=== PATIENT | female | born 1985 | race Two or more races ===

== ENCOUNTER 2016-08-19 07:26 | Emergency (ER) | payer OTHER ==
[~2016-08-19] VITALS: Ht 175.3 cm; Wt 70.0 kg
[~2016-08-19 07:26] MED LIST: FOL1 PO; LAMO150T3 PO; [UNRECOGNIZED DRUG - OTHER]
--- NOTE | 2016-08-19 07:31 | ED.REPORT ---
HPI-NVD Date of Service August 19, 2016 ED Provider: Marcela Hayes MD Patient is a 31 year old female with a history of vestibular migraines and vertigo who presents to the ED complaining of a severe headache onset a week ago. Associated symptoms include pain radiating into her neck, vomiting and chills. She denies lower back pain or decreased appetite. The patient states that the pain is exacerbated by movement and that it feels different than her other migraines. She reports that she has been to the ED due to migraines three times over the past month. Nursing Notes Stated Complaint: HEADACHES, VOMITING Nursing Notes Reviewed: Yes Allergies: Coded Allergies: morphine (Verified Allergy, Severe, 07/31/16) latex (Verified Allergy, Intermediate, 07/31/16) Scheduled ([ plus amn]) 1 x daily Folic Acid-Expunged Drug, Do Not Renew! (Folic Acid-Expunged Drug, Do Not Renew! ) 1 Mg Tablet 1 MG PO take 2 twice daily lamoTRIgine-Expunged Drug, Do Not Renew! (lamoTRIgine-Expunged Drug, Do Not Renew!) 150 Mg Tablet 150 MG PO 2 tabs twice a day General Time Seen by MD: 07:31 Chief Complaint Other (headache) Hx Obtained From: Sign Painter Helper Arrived By: Walk-in Onset Occurred: 1 week ago Symptom Duration: Since onset Recent Healthcare: No recent hospitalization, Recent doctor visit Similar Sx Previous: Yes Past Medical History Past Medical History vestibular migraines vertigo Meningitis at 18 months of age, on medication for life Deaf P2, G1 Reports morphine allergy. Past Surgical History Cervical surgery Reports: Appendectomy Smoking History Never Smoker Social History Alcohol Use: Denies alcohol use Drug Use: Denies drug use Other Social History: Local resident Ambulatory Status Independent Review of Systems Constitutional: Reports: Chills GI: Reports: Vomiting Neurologic: Reports: Headache Complete sys rev & neg: except as marked. Respiratory: Denies: Non-productive cough, Shortness of breath Musculoskeletal: Reports: Neck pain, Denies: Back pain Physical Exam Initial Vital Signs Vital Signs (First) Date Time Temp Pulse Resp B/P Pulse Ox O2 Delivery O2 Flow Rate FiO2 08/19/16 07:54 36.4 99 18 119/71 99 Room Air Initial VS: Reviewed General/Constitutional: Awake, Alert patient was sitting up in the bed, using sign language and moving with headache Abdomen: Atraumatic, Soft, Non-tender Respiratory / Chest: Atraumatic, Breath sounds NL, Breath sounds = bilat, No respiratory distress Cardiovascular: Heart rate NL, Regular rhythm, Heart sounds NL Back: Atraumatic, Full range of motion Skin: Atraumatic, Color NL, No rash, Warm, Dry Neurologic: Oriented X3, Speech NL, No motor deficits, No sensory deficits Neck: Atraumatic, Supple, No meningismus Psychiatric: Affect NL, Mood NL Interpretation & Diagnostics Lab Results Interpretation Result Diagram: 08/19/16 0900 08/19/16 0900 Test 08/19/16 09:00 White Blood Count 12.9th/mm3 (3.8-10.1) Red Blood Count 4.83mil/mm3 (3.90-5.20) Hemoglobin 14.7g/dL (12.0-15.6) Hematocrit 43.8% (35.0-46.0) Mean Corpuscular Volume 90.7fL (81-100) Mean Corpuscular Hemoglobin 30.4pg (27.0-35.0) Mean Corpuscular Hemoglobin Concent 33.6% (32.0-37.0) Red Cell Distribution Width 13.0% (12.3-15.4) Platelet Count 283bil/L (150-400) Neutrophils (%) (Auto) 74.9% (40-74) Lymphocytes (%) (Auto) 14.5% (14-46) Monocytes (%) (Auto) 9.1% (4-12) Eosinophils (%) (Auto) 0.9% (0-5) Basophils (%) (Auto) 0.4% (0-3) Sodium Level 139mEq/L (134-144) Potassium Level 3.8mEq/L (3.5-5.2) Chloride Level 99mEq/L (97-108) Carbon Dioxide Level 23mmol/L (18-29) Blood Urea Nitrogen 13mg/dL (6-20) Creatinine 0.63mg/dL (0.57-1.00) Estimat Glomerular Filtration Rate 158mL/min (>59) Glucose Level 99mg/dL (60-99) Calcium Level 9.2mg/dL (8.5-10.1) Total Bilirubin 0.5mg/dL (0.0-1.2) Aspartate Amino Transf (AST/SGOT) 12U/L (0-50) Alanine Aminotransferase (ALT/SGPT) 12U/L (0-32) Alkaline Phosphatase 52U/L (25-150) C-Reactive Protein 1.2mg/dL (0.0-0.5) Total Protein 7.5g/dL (6.4-8.4) Albumin 4.7g/dL (3.4-5.0) Hold Beaulieu Top Tube Received (Received) Re-Eval/Medical Decision Source of Hx: Old records Re-Evaluation/Progress #1: Time of Eval: 11:36 Patient Status: Mild relief Re-Evaluation/Progress #2: Time of Eval: 12:00 Patient Status: Condition improved Re-Evaluation/Progress Note: Patient was feeling slightly improved. Discussed plan for discharge. The patient understands and agrees to the plan for discharge. All questions were addressed. Counseled Regarding: Diagnosis, Need for follow-up, When/why to return to ED Discharge & Departure Impression: Primary Impression: Migraine Migraine type: unspecified Ruled Out: Intracranial hemorrhage, Stroke Disposition: Home Discharge Condition All VS Reviewed: Yes Condition: Stable I am sorry you are having such a difficult time with this migraine. In the ER today you got IV fluid, 2mg haldol, benadryl, phenergan, toradol and 10mg of decadron (steroid) because you have had this specific headache so long. Please keep your appointments with neurology as scheduled. I hope you feel better. Referrals: Cinthia Rouse MD (PCP) Scribe Attestation Portions of this note were transcribed by Rosaura Bolanos. I, Dr. Hayes personally performed the history, physical exam and medical decision-making; I reviewed and confirmed the accuracy of the information in the transcribed note. Signed by: Kermit Beckham, 08/19/16 and 1220. copies to: Cinthia Rouse MD, Shawna L MD August 19, 2016 07:31 Veronica Bolanos August 19, 2016 08:16
[2016-08-19 07:54] VITALS: BP 119/71; PULSE 99; RESP 18; O2SAT 99
[2016-08-19] MEDS ORDERED: 0.9% Sodium Chloride 1,000 ML IV ONE (08:23)
[2016-08-19] MEDS ORDERED: Ondansetron 2 mg/mL 2 mL Inj IVPUSH ONE (08:25)
[2016-08-19] MEDS ORDERED: Promethazine Inj 50 MG in 0.9% Sodium Chloride-Pha MIX 100 ML IV ONE (08:25)
[2016-08-19] MEDS ORDERED: Haloperidol 5 mg/mL Inj IVPUSH ONE (08:25)
[2016-08-19] MEDS ORDERED: Dexamethasone 10 mg/mL Inj IVPUSH ONE (08:25)
[2016-08-19 09:13] LABS: BASOPHILS % (AUTO) 0.4 % (0-3); EOSINOPHILS % (AUTO) 0.9 % (0-5); MONOCYTES % (AUTO) 9.1 % (4-12); Mean Corpuscular Hemoglobin 30.4 pg (27.0-35.0); Mean Corpuscular Volume 90.7 fL (81-100); NEUTROPHILS % (AUTO) 74.9 % (40-74); Platelet Count 283 bil/L (150-400)
[2016-08-19 11:15] VITALS: BP 104/67; PULSE 70; RESP 15; O2SAT 100
[2016-08-19 12:39] VITALS: BP 104/67; PULSE 70; RESP 15; O2SAT 100
== END 2016-08-19 12:39 | disposition home or self-care (01) ==
LOC: SED 07:26
DX: G43.909 Migraine, unspecified, not intractable, without status migrainosus (principal); H91.90 Unspecified hearing loss, unspecified ear; Z90.89 Acquired absence of other organs; Z86.61 Personal history of infections of the central nervous system; Z86.69 Personal history of other diseases of the nervous system and sense organs; Z88.5 Allergy status to narcotic agent
CPT/HCPCS: 36415; 80053; 85025; 86140; 96361; 96374; 96375; 99284; J1100; J1200; J1630; J1885; J2405; J2550; J7030

== ENCOUNTER 2016-10-08 07:07 | Emergency (ER) | payer OTHER ==
--- NOTE | 2016-10-08 07:11 | ED.REPORT ---
HPI-Seizure Date of Service Oct 08, 2016 ED Provider: Dr. Juan Green The patient is a 31 year old female w/ a hx of vestibular migraines and vertigo who presents to the ED via EMS accompanied by a friend due to a possible seizure. Per medics, the pt lives at the [facility]. Staff and EMS report they witnessed the patient having a seizure. The boyfriend is unsure if the pt has been taking her medication or not. She was last seen at [facility] on 08/19/16 for a migraine. Both the pt and her boyfriend are deaf and speak ASL. Hx is limited due to lack of historic interpreter. Nursing Notes Stated Complaint: POSSIBLE SEIZURE Nursing Notes Reviewed: Yes Allergies: Coded Allergies: morphine (Verified Allergy, Severe, 07/31/16) latex (Verified Allergy, Intermediate, 07/31/16) Scheduled ([ plus amn]) 1 x daily Folic Acid-Expunged Drug, Do Not Renew! (Folic Acid-Expunged Drug, Do Not Renew! ) 1 Mg Tablet 1 MG PO take 2 twice daily lamoTRIgine-Expunged Drug, Do Not Renew! 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 Past Surgical History Cervical surgery Reports: Appendectomy Smoking History Never Smoker Social History Alcohol Use: Denies alcohol use Drug Use: Denies drug use Other Social History: Local resident Ambulatory Status Independent Review of Systems Unable to Obtain ROS Patient condition Physical Exam Initial Vital Signs Vital Signs (First) Date Time Temp Pulse Resp B/P Pulse Ox O2 Delivery O2 Flow Rate FiO2 10/08/16 07:24 37.0 96 15 108/46 100 Room Air Initial VS: Reviewed Alertness: Positive: Sleeping but arousable deaf nonverbal no signs of trauma Neck: Atraumatic, Supple, Non-tender Respiratory / Chest: Atraumatic, Breath sounds NL, Breath sounds = bilat Cardiovascular: Heart rate NL, Regular rhythm, Heart sounds NL Neurologic: Oriented X3 neuro grossly in tact moving all 4 extremities symmetric face Head / Eyes: Atraumatic, Normocephalic, PERRL ENT: Mucous membranes moist, Pharynx NL tooth 28 partial fracture, no preiapical abscess Abdomen: Atraumatic, Soft, Non-tender Upper Extremity / MS: Atraumatic, Inspection NL, No deformity Lower Extremity / Pelvis / MS: Atraumatic, Inspection NL, No deformity Skin: Atraumatic, Warm, Dry Interpretation & Diagnostics Lab Results Interpretation Result Diagram: 10/08/16 1005 10/08/16 1005 Test 10/08/16 09:35 10/08/16 10:05 Hold Urine Received (Received) White Blood Count 8.9th/mm3 (3.8-10.1) Red Blood Count 4.36mil/mm3 (3.90-5.20) Hemoglobin 13.1g/dL (12.0-15.6) Hematocrit 40.2% (35.0-46.0) Mean Corpuscular Volume 92.2fL (81-100) Mean Corpuscular Hemoglobin 30.0pg (27.0-35.0) Mean Corpuscular Hemoglobin Concent 32.6% (32.0-37.0) Red Cell Distribution Width 13.7% (12.3-15.4) Platelet Count 307bil/L (150-400) Neutrophils (%) (Auto) 80.4% (40-74) Lymphocytes (%) (Auto) 9.8% (14-46) Monocytes (%) (Auto) 9.0% (4-12) Eosinophils (%) (Auto) 0.3% (0-5) Basophils (%) (Auto) 0.3% (0-3) Sodium Level 139mEq/L (134-144) Potassium Level 4.0mEq/L (3.5-5.2) Chloride Level 105mEq/L (97-108) Carbon Dioxide Level 22mmol/L (18-29) Blood Urea Nitrogen 12mg/dL (6-20) Creatinine 0.53mg/dL (0.57-1.00) Estimat Glomerular Filtration Rate 193mL/min (>59) Glucose Level 107mg/dL (60-99) Calcium Level 9.1mg/dL (8.5-10.1) Total Bilirubin 0.3mg/dL (0.0-1.2) Aspartate Amino Transf (AST/SGOT) 15U/L (0-50) Alanine Aminotransferase (ALT/SGPT) 12U/L (0-32) Alkaline Phosphatase 46U/L (25-150) Total Protein 6.8g/dL (6.4-8.4) Albumin 4.1g/dL (3.4-5.0) Lab Results Interpretation: urine dip neg +THC not Re-Eval/Medical Decision Re-Evaluation/Progress #1: Time of Eval: 08:28 Re-Evaluation/Progress Note: Pt rechecked. She woke up enough to open one eye, held up one finger, then rolled over and put the blanket over her head. Patient is moving all 4 extremities and has facial symmetry. Re-Evaluation/Progress #2: Time of Eval: 09:21 Re-Evaluation/Progress Note: Pt is awake and historic interpreter is available via video screen. Pt is now alert enough to respond to questions. She does not remember having a seizure. Pt confirms that she feels "lousy," drained, weak, fatigued, and has a headache. Pt has as tooth infection (tooth 28 partial fracture, no periapical abscess) and is currently on antibiotics. She has an appointment with a doctor tomorrow to get the tooth fixed. She was able to get up to the comode with assistance, but was too weak to walk to the bathroom. Re-Evaluation/Progress #3: Time of Eval: 09:50 Re-Evaluation/Progress Note: Pt reports that she has a hx of vertibular migraines. She also confirms that this is how she normally feels after a seizure and it generally takes 2 days for her to feel back to normal. Re-Evaluation/Progress #4: Time of Eval: 01:00 Re-Evaluation/Progress Note: Pt was able to ambulate normally. Discharged from the ED. Counseled Regarding: Diagnosis, Lab results, Need for follow-up, When/why to return to ED Discharge & Departure Impression: Primary Impression: Migraine Migraine type: unspecified Status migrainosus presence: without status migrainosus Intractability: not intractable Qualified Code: G43.909 - Migraine, unspecified, not intractable, without status migrainosus Additional Impression: Breakthrough seizure Disposition: Home Discharge Condition All VS Reviewed: Yes Condition: Stable Additional Instructions: I believe you had a breakthrough seizure. Continue taking your Lamictal. Follow-up with your regular doctor as needed. Return to ER as needed for concerning signs or symptoms Referrals: Cinthia Rouse MD (PCP) Scribe Attestation Portion of this note were transcribed by Jessica Taylor. I, Dr. Green, personally performed the history, physical exam, and medical decision-making: I reviewed and confirmed the accuracy for the information in the transcribed note. Signed by: daniela Pino, 10/08/16 1000 copies to: Cinthia Rouse MD, Timothy S DO Oct 08, 2016 07:11 Jessica Taylor Oct 08, 2016 07:19
[2016-10-08] MEDS ORDERED: levETIRAcetam 500 mg Tablet PO ONE (07:15)
[2016-10-08 07:24] VITALS: BP 108/46; PULSE 96; RESP 15; O2SAT 100
[2016-10-08] MEDS ORDERED: 0.9% Sodium Chloride 1,000 ML IV ONE (09:40)
[2016-10-08] MEDS ORDERED: ProchlorPERazine 5 mg/mL 2 mL Inj IVPUSH ONE (09:50)
[2016-10-08] MEDS ORDERED: Ketorolac 15 mg/mL Inj IVPUSH ONE (09:50)
[2016-10-08 10:14] LABS: BASOPHILS % (AUTO) 0.3 % (0-3); EOSINOPHILS % (AUTO) 0.3 % (0-5); Mean Corpuscular Volume 92.2 fL (81-100); NEUTROPHILS % (AUTO) 80.4 % (40-74); Platelet Count 307 bil/L (150-400)
[2016-10-08 10:20] VITALS: BP 93/51; PULSE 63; RESP 16; O2SAT 100
== END 2016-10-08 13:08 | disposition home or self-care (01) ==
LOC: SED 07:07 → EDUNIT# 07:07 → EDBD 07:07 → SED 13:08
DX: G43.909 Migraine, unspecified, not intractable, without status migrainosus (principal); R56.9 Unspecified convulsions; Z88.5 Allergy status to narcotic agent; Z91.040 Latex allergy status
CPT/HCPCS: 36415; 80053; 81025; 85025; 96361; 96374; 96375; 99285; J0780; J1200; J1885; J7030

== ENCOUNTER 2016-12-06 07:19 | Emergency (ER) | payer OTHER ==
[2016-12-06 07:33] VITALS: BP 97/67; PULSE 79; RESP 18; O2SAT 100
[2016-12-06] MEDS ORDERED: Ondansetron 2 mg/mL 2 mL Inj ONE (08:04)
[2016-12-06] MEDS ORDERED: 0.9% Sodium Chloride 1,000 ML IV ONE (08:45)
--- NOTE | 2016-12-06 09:17 | ED.REPORT ---
HPI-General Illness Date of Service Dec 06, 2016 ED Provider: Stu Patel MD Patient is a 31 year old female with a hx of seizures, vertigo, and migraines who presents to the ED s/p experiencing an unwitnessed episode of LOC in the shower onset 0430 this morning. She reports she woke on the bathroom floor, bit her tongue during the incident, and is now experiencing headache, confusion, and nausea. She hit the left side of her head upon falling. Patient did not have an aura and does not normally. Her seizures are usually during sleep but this episode still felt similar to her previous seizures. She denies numbness, focal weakness, vomiting, chest pain, SOB, dizziness, lightheadedness, neck pain , back pain, or any other symptoms. She takes Lamictal daily but has not been taking it recently due to financial concerns. Nursing Notes Stated Complaint: POSSIBLE SEIZURE Chief Complaint: Seizure Nursing Notes Reviewed: Yes Allergies: Coded Allergies: morphine (Verified Allergy, Severe, 07/31/16) latex (Verified Allergy, Intermediate, 07/31/16) Scheduled ([ plus amn]) 1 x daily Folic Acid-Expunged Drug, Do Not Renew! (Folic Acid-Expunged Drug, Do Not Renew! ) 1 Mg Tablet 1 MG PO take 2 twice daily Lamotrigine (Lamotrigine) 100 Mg Tablet 100 MG PO BID lamoTRIgine-Expunged Drug, Do Not Renew! (lamoTRIgine-Expunged Drug, Do Not Renew!) 150 Mg Tablet 150 MG PO 2 tabs twice a day General Time Seen by MD: 07:50 Chief Complaint Other (LOC) Hx Obtained From: Patient Arrived By: Walk-in Sudden in Onset?: Yes Onset Occurred: 1 - 4 hours ago Caused by: Fall on ground Location: : Head Quality: Painful Radiation: : Does not radiate Severity: Current: Severe Severity: Maximum: Severe Associated with: Reports: Nausea Additional Notes: confusion Pertinent Negative: Pt denies other symptoms Relieved by: Prescription meds Context Related History: Reports Seizure disorder (hx of seizures) Similar Sx Previous: Yes Past Medical History Past Medical History Notes: Neurologist at Past Medical History vestibular migraines vertigo Meningitis at 18 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 seizures Past Surgical History Cervical surgery Reports: Appendectomy Family History Denies: Stroke Denies: Subarachnoid hemorrhage Smoking History Never Smoker Social History Alcohol Use: Denies alcohol use Drug Use: Denies drug use, THC Other Social History: Local resident Ambulatory Status Independent Review of Systems Full Review of Systems Ears / Nose / Throat: Reports: Tongue pain Respiratory: Denies: Shortness of breath Cardiovascular: Denies: Chest pain GI: Reports: Nausea, Denies: Vomiting Musculoskeletal: Denies: Back pain, Neck pain Neurologic: Reports: Change LOC, Confusion, Headache, Denies: Dizziness, Focal weakness, Lightheaded, Numbness Complete sys rev & neg: except as marked. Physical Exam Nursing note and vitals reviewed. Constitutional: Well-developed, well-nourished. Not diaphoretic. Head: Normocephalic and atraumatic. Mouth/Throat: Oropharynx is clear and moist. No oropharyngeal exudate. She does have a small amount of dried blood on her tongue that appears to be where she bit it. Eyes: EOM are normal. Pupils are equal, round, and reactive to light. Neck: Supple, no tracheal deviation. No cervical spine tenderness. Atraumatic. C-collar removed after negative CT C-spine. Cardiovascular: Normal rate, regular rhythm. Equal and intact distal pulses throughout. Pulmonary/Chest: Effort normal and breath sounds normal. No respiratory distress. Abdominal: Soft. No distension. There is no tenderness, rebound, or guarding. Bowel sounds present. Musculoskeletal: Range of motion grossly intact, moving all extremities. No edema or tenderness appreciated. Neurological: AOx3. Grossly nonfocal exam. Strength and sensation intact and equal to bilateral upper and lower extremities. Normal finger to nose testing. No pronator drift. Skin: Warm and dry, no rashes or pallor appreciated. Psychiatric: Appropriate mood and affect. Behavior appears normal. Vital Signs Vital Signs Date Time Temp Pulse Resp B/P Pulse Ox O2 Delivery O2 Flow Rate FiO2 12/06/16 12:03 67 18 112/52 98 Room Air 12/06/16 11:16 67 18 112/52 98 Room Air 12/06/16 09:30 71 18 108/45 100 Room Air 12/06/16 07:33 36.5 79 18 97/67 100 Room Air Initial VS: Reviewed Interpretation & Diagnostics Lab Results Interpretation Result Diagram: 12/06/16 0800 12/06/16 0800 Test 12/06/16 08:00 White Blood Count 8.4th/mm3 (3.8-10.1) Red Blood Count 4.50mil/mm3 (3.90-5.20) Hemoglobin 13.5g/dL (12.0-15.6) Hematocrit 41.2% (35.0-46.0) Mean Corpuscular Volume 91.6fL (81-100) Mean Corpuscular Hemoglobin 30.0pg (27.0-35.0) Mean Corpuscular Hemoglobin Concent 32.8% (32.0-37.0) Red Cell Distribution Width 12.9% (12.3-15.4) Platelet Count 311bil/L (150-400) Neutrophils (%) (Auto) 78.4% (40-74) Lymphocytes (%) (Auto) 10.5% (14-46) Monocytes (%) (Auto) 10.1% (4-12) Eosinophils (%) (Auto) 0.5% (0-5) Basophils (%) (Auto) 0.4% (0-3) Sodium Level 139mEq/L (134-144) Potassium Level 3.7mEq/L (3.5-5.2) Chloride Level 102mEq/L (97-108) Carbon Dioxide Level 24mmol/L (18-29) Blood Urea Nitrogen 18mg/dL (6-20) Creatinine 0.70mg/dL (0.57-1.00) Estimat Glomerular Filtration Rate 140mL/min (>59) Glucose Level 86mg/dL (60-99) Calcium Level 9.2mg/dL (8.5-10.1) Magnesium Level 2.0mg/dL (1.6-2.6) Total Bilirubin 0.4mg/dL (0.0-1.2) Aspartate Amino Transf (AST/SGOT) 21U/L (0-50) Alanine Aminotransferase (ALT/SGPT) 15U/L (0-32) Alkaline Phosphatase 50U/L (25-150) Total Protein 7.4g/dL (6.4-8.4) Albumin 4.5g/dL (3.4-5.0) Hold Beaulieu Top Tube Received (Received) Lab Results Interpretation: Urine preg neg. ECG Interpretation ECG Interpretation: Sinus rate 67 Time: 07:50 Interpreted by: ED physician CT Head Interpretation IMPRESSION: No source of seizure activity seen, no trauma from seizure is found. Dictated by: Pan Dallas M.D. on 12/06/2016 at 10:04 Approved by: Pan Dallas M.D. on 12/06/2016 at 10:05 Study: Head CT no contrast Interpretation / Wet Read by: Interpret - Radiologist CT C-Spine Interpretation IMPRESSION: No visualized fracture or dislocation. Dictated by: Eladia Canas M.D. on 12/06/2016 at 10:04 Approved by: Eladia Canas M.D. on 12/06/2016 at 10:09 Study type: CT no contrast Interpretation / Wet Read by: Carlos A w radiologist Re-Eval/Medical Decision Med Decision/Clinical Course In summary, 31-year-old female with a known history of seizure disorder presenting to the ED after an apparent seizure earlier today. She does not describe any symptoms today that are different from her normal seizures and admits that she has been noncompliant with her medication recently. She was postictal afterwards and symptoms are resolving. CMP, CBC grossly within normal limits. CT of the patient's head and C-spine also negative for acute abnormality. She is feeling better, comfortable with discharge home, and following up as an outpatient. I did write her a new prescription for her Lamictal at her previous dose. Plan discharge home with very careful return precautions, close outpatient follow-up. Patient agreeable to the plan as stated, no further questions. Time of Eval: 11:31 Re-Evaluation/Progress Note: Rechecked pt. She still has a headache. She reports that sleeping and ice help her pain for headaches after seizures. Discussed imaging results. Discussed plan for discharge. Patient understands and agrees with plan. All questions addressed at this time. Counseled Regarding: Diagnosis, Lab results, Need for follow-up, When/why to return to ED Discharge & Departure Primary Impression: Seizure Disposition: Home Discharge Condition All VS Reviewed: Yes Condition: Improved Additional Instructions: Thank you for entrusting us with your care. Your examination, labs, EKG, and CT scans are reassuring. We did not find a dangerous cause for your symptoms at this time. Call your neurologist at this afternoon or tomorrow to inform them of your visit today. Return to the emergency department if you experience another seizure, vision changes, numbness, tingling, weakness on one side of your body, neck pain, back pain, fever, chills, or any other new or concerning symptoms. Referrals: Cinthia Rouse MD (PCP) Aleshaibjohan Attestation Portions of this note were transcribed by Ulices Calvo. I, Dr. Patel personally performed the history, physical exam and medical decision-making; I reviewed and confirmed the accuracy of the information in the transcribed note. Signed by: Kermit Walker, 12/06/16 copies to: Cinthia Rouse MD, William B MD Dec 06, 2016 09:17 ULICES CALVO Dec 06, 2016 09:25
[2016-12-06 09:19] LABS: BASOPHILS % (AUTO) 0.4 % (0-3); EOSINOPHILS % (AUTO) 0.5 % (0-5); MONOCYTES % (AUTO) 10.1 % (4-12); Mean Corpuscular Volume 91.6 fL (81-100); NEUTROPHILS % (AUTO) 78.4 % (40-74); Platelet Count 311 bil/L (150-400)
[2016-12-06 09:30] VITALS: BP 108/45; PULSE 71; RESP 18; O2SAT 100
[2016-12-06] MEDS ORDERED: HYDROcodone-APAP 5-325 mg Tablet PO ONE (09:30)
--- NOTE | 2016-12-06 10:06 | DRSVH ---
PROCEDURE: CT BRAIN WITHOUT CONTRAST ([id number]) INDICATIONS: seizure TECHNIQUE: Noncontrast 4.5 mm thick angled axial sections acquired from the foramen magnum to the vertex, with c oronal reformats. COMPARISON: None. FINDINGS: Image quality: Excellent. CSF spaces: Basal cisterns are patent. No extra-axial fluid collections. Ventricles are normal in size and shape. Brain: No midline shift. No intracranial masses or hemorrhage. Garcia-white matter interface is norm al. Skull and face: Calvarium and visualized facial bones are intact, without suspicious lesions. Sinuses: Visualized sinuses and mastoids are clear. IMPRESSION: No source of seizure activity seen, no trauma from seizure is found. Dictated by: Pan Dallas M.D. on 12/06/2016 at 10:04 Approved by: Pan Dallas M.D. on 12/06/2016 at 10:05
--- NOTE | 2016-12-06 10:11 | DRSVH ---
PROCEDURE: CT CERVICAL SPINE WITHOUT CONTRAST ([id number]) INDICATIONS: seizure TECHNIQUE: Noncontrast 3 mm thick sections acquired from the skull base to the T4 level. Sagittal and coronal r eformats were then constructed. For radiation dose reduction, the following was used: automated exp osure control, adjustment of mA and/or kV according to patient size. COMPARISON: None. FINDINGS: Image quality: Excellent. Bones: No fractures or dislocations. Visualized superior ribs are intact. Soft tissues: Prevertebral soft tissues are normal in thickness. No paravertebral hematomas. No ap ical pneumothoraces. IMPRESSION: No visualized fracture or dislocation. Dictated by: Eladia Canas M.D. on 12/06/2016 at 10:04 Approved by: Eladia Canas M.D. on 12/06/2016 at 10:09
[2016-12-06 11:16] VITALS: BP 112/52; PULSE 67; RESP 18; O2SAT 98
[2016-12-06] MEDS ORDERED: LAMO100T2 PO (11:24)
[2016-12-06 12:03] VITALS: BP 112/52; PULSE 67; RESP 18; O2SAT 98
== END 2016-12-06 12:04 | disposition home or self-care (01) ==
LOC: SED 07:19
DX: R56.9 Unspecified convulsions (principal); W01.198A Fall on same level from slipping, tripping and stumbling with subsequent striking against other object, initial encounter; Y93.89 Activity, other specified; Y92.012 Bathroom of single-family (private) house as the place of occurrence of the external cause; Y99.8 Other external cause status; R11.0 Nausea; G43.909 Migraine, unspecified, not intractable, without status migrainosus; Z98.890 Other specified postprocedural states; Z88.5 Allergy status to narcotic agent; Z91.040 Latex allergy status
CPT/HCPCS: 36415; 70450; 72125; 80053; 83735; 85025; 93005; 96374; 99285; J2405; J7030

== ENCOUNTER 2016-12-15 10:25 | Emergency (ER) | payer OTHER ==
[~2016-12-15 10:25] MED LIST changes: +LAMO100T2 PO
[2016-12-15 10:30] VITALS: BP_SYST 90; PULSE 98
[2016-12-15 10:40] VITALS: BP 134/56; PULSE 67; RESP 12; O2SAT 100
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
[2016-12-15 12:22] LABS: Mean Corpuscular Hemoglobin 30.3 pg (27.0-35.0); Mean Corpuscular Volume 92.7 fL (81-100); NEUTROPHILS % (AUTO) 68.4 % (40-74); Platelet Count 312 bil/L (150-400)
[2016-12-15 12:23] LABS: BASOPHILS % (AUTO) 0.7 % (0-3); EOSINOPHILS % (AUTO) 0.6 % (0-5)
--- NOTE | 2016-12-15 12:24 | DRSVH ---
PROCEDURE: X-RAY CHEST ONE VIEW, PORTABLE ([id number]) INDICATIONS: Left Chest pain TECHNIQUE: One view of the chest was acquired. COMPARISON: None. FINDINGS: Surgical changes and devices: None. Lungs and pleura: No pleural effusions or pneumothorax. Lungs are clear. Mediastinum: Mediastinal contours appear normal. Heart size is normal. Bones and chest wall: No suspicious bony lesions. Overlying soft tissues appear unremarkable. IMPRESSION: No radiographic evidence of acute cardiopulmonary pathology. Dictated by: Aguila Torres M.D. on 12/15/2016 at 12:22 Approved by: Aguila Torres M.D. on 12/15/2016 at 12:23
[2016-12-15 13:32] VITALS: BP 112/53; PULSE 61; RESP 14; O2SAT 99
--- NOTE | 2016-12-15 13:48 | DRSVH ---
PROCEDURE: CT BRAIN WITHOUT CONTRAST ([id number]) INDICATIONS: ?Altered LOC? TECHNIQUE: Noncontrast 4.5 mm thick angled axial sections acquired from the foramen magnum to the vertex, with c oronal reformats. COMPARISON: [facility], CT, CT BRAIN WO CON, 12/06/2016, 9:49. FINDINGS: Image quality: Excellent. CSF spaces: Basal cisterns are patent. No extra-axial fluid collections. Ventricles are normal in size and shape. Brain: No midline shift. No intracranial masses or hemorrhage. Garcia-white matter interface is norm al. Skull and face: Calvarium and visualized facial bones are intact, without suspicious lesions. Sinuses: Visualized sinuses and mastoids are clear. IMPRESSION: No CT evidence of acute intracranial pathology. Dictated by: Aguila Torres M.D. on 12/15/2016 at 13:32 Approved by: Aguila Torres M.D. on 12/15/2016 at 13:47
[2016-12-15 14:55] VITALS: BP 117/53; PULSE 60; RESP 16; O2SAT 99
[2016-12-15] MEDS ORDERED: Promethazine Inj 25 MG in 0.9% Sodium Chloride-Pha MIX 100 ML IV ONE (16:15)
[2016-12-15] MEDS ORDERED: PROM25TA14 PO (16:56)
[2016-12-15 17:09] VITALS: BP 117/56; PULSE 67; RESP 14; O2SAT 100
== END 2016-12-15 17:14 | disposition home or self-care (01) ==
LOC: SED 10:25
DX: R07.9 Chest pain, unspecified (principal); R42 Dizziness and giddiness; M79.604 Pain in right leg; M79.605 Pain in left leg; W22.8XXD Striking against or struck by other objects, subsequent encounter; Y93.89 Activity, other specified; Y92.9 Unspecified place or not applicable; Y99.9 Unspecified external cause status; Z88.5 Allergy status to narcotic agent; Z91.040 Latex allergy status
CPT/HCPCS: 36415; 70450; 71010; 80053; 81025; 85025; 93005; 96374; 99285; J2550